=== PATIENT | male | born 1995 | race Caucasian/White ===

== ENCOUNTER 2023-05-12 20:43 | Emergency (ER) | payer OTHER ==
[2023-05-12 21:17] VITALS: BP 133/75; O2SAT 97
--- NOTE | 2023-05-12 23:20 | ED Physician Documentation ---
History of Present Illness - Stated complaint Stated Complaint: LT ARM PX - Chief complaint Chief Complaint: Ext Problem - History obtained from History obtained from: Patient - Additonal information Additional information: 28yM previously healthy without prior shoulder issues, right handed, p/w 3 weeks of intermittent L shoulder pain radiating to the elbow. patient does heavy lifting at his work for the [employer]. denies specific injury. no numbness/tingling. worse with lifting. PD PAST MEDICAL HISTORY - Past Medical History Past Medical History: No Cardiovascular: None Respiratory: None Neuro: None Endocrine/Autoimmune: None GI: None : None HEENT: None Psych: None Musculoskeletal: None Derm: None - Past Surgical History Past Surgical History: No - Present Medications Home Medications: Ambulatory Orders Medication Instructions Recorded Confirmed Ketorolac [Toradol] 10 mg PO Q6H PRN #20 tablet 05/12/23 - Allergies Allergies/Adverse Reactions: Allergies Allergy/AdvReac Type Severity Reaction Status Date / Time No Known Drug Allergies Allergy Verified 05/12/23 21:12 - Social History Does the pt smoke?: Yes Smoking Status: Current every day smoker Does the pt drink ETOH?: Yes Does the pt have substance abuse?: No - Immunizations Immunizations are current?: Yes - POLST Patient has POLST: No PD ED PE NORMAL - Vitals Vital signs reviewed: Yes - General General: Alert and oriented X 3, No acute distress, Well developed/nourished - HEENT HEENT: Atraumatic, PERRL, EOMI, Moist mucous membranes, Pharynx benign - Derm Derm: Normal color, Warm and dry - Extremities Extremities: No deformity, No tenderness to palpate, Normal ROM s pain, Other (CSM intact LUE) - Neuro Neuro: No motor deficit, No sensory deficit Results - Vitals Vitals: Vital Signs - 24 hr 05/12/23 05/12/23 21:06 21:12 Temperature 36.8 C 36.8 C Heart Rate 78 78 Respiratory 16 16 Rate Blood Pressure 133/75 H 133/75 H O2 Saturation 97 97 Oxygen O2 Source Room air PD Medical Decision Making - ED course ED course: 28yM presents with L shoulder and arm pain intermittent X 3 weeks that has resolved while in the emergency department. physical exam was unremarkable. symptomatic care discussed and toradol rx provided. return precautions given. Departure - Departure Disposition: Home, Self Care Clinical Impression: Left shoulder strain Condition: Stable Instructions: Ketorolac tablets Prescriptions: Ketorolac [Toradol] 10 mg PO Q6H PRN #20 tablet PRN Reason: Pain Comments: You were seen in the emergency department for shoulder and arm pain. Prescription sent electronically to [facility] pharmacy. Please follow-up with your primary care provider since you may need to go on light duty or have work modifications. Return to the emergency department if you have any new or worsening symptoms or other concerns. Forms: PCP List
== END 2023-05-12 23:30 | disposition home or self-care (01) ==
LOC: ED 20:43
DX: S46.912A Strain of unspecified muscle, fascia and tendon at shoulder and upper arm level, left arm, initial encounter (principal); X58.XXXA Exposure to other specified factors, initial encounter; F17.200 Nicotine dependence, unspecified, uncomplicated
CPT/HCPCS: 99282; 99283